=== PATIENT | female | born 1990 | race Caucasian/White ===

== ENCOUNTER 2024-04-20 04:11 | Emergency (ER) | payer SELFPAY ==
[~2024-04-20] VITALS: Ht 172.7 cm; Wt 73.0 kg
[2024-04-20 04:15] VITALS: BP 134/74; PULSE 96; TEMP 98.2; O2SAT 95
[2024-04-20] MEDS: KETOROLAC 30MG/ML VIAL IM ONE (05:34)
[2024-04-20] MEDS ORDERED: ACET-2708 PO (06:42)
[2024-04-20 06:50] VITALS: RESP 16
== END 2024-04-20 07:58 | disposition home or self-care (01) ==
LOC: ER 04:11
DX: M54.2 Cervicalgia (principal)
CPT/HCPCS: 81025; 72125; 96372; 99285; J1885; Z7610

== ENCOUNTER 2025-05-02 05:53 | Emergency (ER) | payer BC ==
[~2025-05-02] VITALS: Ht 162.6 cm; Wt 90.0 kg
[~2025-05-02 05:53] MED LIST: ACET-2708 PO
[2025-05-02 06:00] VITALS: O2SAT 99
[2025-05-02 06:48] LABS: BASOPHILS % 0.9 % (0.0-2.0); EOSINOPHILS % 0.5 % (0.0-5.0); HEMATOCRIT. 39.2 % (36.0-48.0); HEMOGLOBIN. 13.5 g/dL (12.0-16.0); LYMPHOCYTES % 19.8 % (20.0-50.0); MEAN PLATELET VOLUME 7.7 fl (7.4-10.4); MONOCYTES % 4.0 % (2.0-8.0); NEUTROPHILS % 74.8 % (40.0-76.0); PLATELET 402 x1000/uL (130-400); RED BLOOD CELL COUNT 4.46 mill/uL (4.2-5.4); RED CELL DISTRIBUTION WIDTH 13.4 % (11.6-14.6)
[2025-05-02 07:04] LABS: CREATININE 0.6 mg/dL (0.6-1.0)
[2025-05-02 07:05] LABS: UREA NITROGEN BLOOD 6 mg/dL (9-23)
[2025-05-02 07:06] LABS: TROPONIN I HIGH SENSITIVITY < 4 ng/L (3.0-34)
[2025-05-02 07:23] LABS: HCG SCREEN NEGATIVE
[2025-05-02 08:45] VITALS: BP 110/64; PULSE 71; RESP 19; TEMP 36.4; O2SAT 99
== END 2025-05-02 09:10 | disposition home or self-care (01) ==
LOC: ER 06:38
DX: R00.2 Palpitations (principal); F12.90 Cannabis use, unspecified, uncomplicated
CPT/HCPCS: 36415; 71045; 80048; 84484; 84703; 85025; 85379; 93005; 99285